=== PATIENT | male | born 1945 | race African-American/Black ===

== ENCOUNTER → 2022-02-26 | Outpatient (CLI) | payer MEDICARE ==
--- NOTE | 2022-02-26 11:11 | RAD ---
US FNA BIOPSY ADDITIONAL LESION, US FNA BIOPSY 1ST LESION Clinical History: Enlarging bilateral thyroid nodules. Discussion: The risks and benefits of the procedure including but not limited to bleeding infection w ere discussed with the patient. Informed consent was obtained. The patient was placed in the supine p osition. Time out procedure was performed. The neck was prepped and draped using maximum sterile soto ier technique. Limited ultrasound evaluation demonstrates approximately 3 cm diameter solid and cysti c nodule in the right lobe and approximately 3 cm diameter solid and cystic nodule in the left thyroi d lobe. Once an appropriate site for skin entry was selected 1% lidocaine without epinephrine was adm inistered for local anesthesia. Under ultrasound guidance, 4 fine-needle aspirations of the right thy roid nodule were performed using 27-gauge needles. Subsequently, 4 fine-needle aspirations of the lef t thyroid nodule were performed using 27-gauge needles. No significant bleeding was identified. Post biopsy ultrasound imaging was obtained demonstrating no evidence of immediate complication. Impression: Successful ultrasound guided fine-needle aspiration of bilateral thyroid nodules as descr ibed. Electronically signed by: Gerald Matamoros MD (02/26/2022 11:08 AM) [id number]
== END ==
LOC: US 10:12
PROVIDERS: ATTEND Registered Nurse
DX: E04.2 Nontoxic multinodular goiter (principal)
CPT/HCPCS: 10005; 10006; C1819